=== PATIENT | female | born 1995 | race Two or more races ===

== ENCOUNTER 2018-11-10 00:52 | Emergency (ER) | payer OTHER ==
--- NOTE | 2018-11-10 00:59 | ER Report ---
History and Physical Time Seen By MD: 00:53 HPI/ROS CHIEF COMPLAINT: Alcohol intoxication, passed out HISTORY OF PRESENT ILLNESS: 23-year-old female brought in by EMS, yelling and thrashing about hysterically. She was unresponsive in the bathroom at a local bar. She was brought in by EMS, became quite agitated and hysterical. Shortly after arrival. She was rolling about in the bed nearly falling off the gurney onto the floor. Patient's sister who is present in sober states she is concerned that the patient may have been slipped date rape drug. Shortly after arrival, patient began vomiting. REVIEW OF SYSTEMS: Respiratory: No cough, no dyspnea. Cardiovascular: No chest pain, no palpitations. Gastrointestinal: As above Musculoskeletal: No back pain. Allergies: Coded Allergies: No Known Drug Allergies (Unverified , 11/10/18) Constitutional Vital Sign - Last 24 Hours 11/10/18 11/10/18 11/10/18 11/10/18 00:57 01:22 01:30 01:52 Temp 97.5 Pulse 87 ??? 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 TMs normal, oropharynx without dental trauma, heavy odor of emesis and alcohol Respiratory: Chest is non tender, lungs are clear to auscultation. Cardiac: regular rate and rhythm Gastrointestinal: Abdomen is soft and non tender, no masses, bowel sounds normal. Musculoskeletal: Neck: Neck is supple and non tender. Extremities have full range of motion and are non tender. Skin: No rashes or lesions. DIFFERENTIAL DIAGNOSIS: After history and physical exam differential diagnosis was considered for alcohol intoxication, polysubstance abuse, anxiety, Medical Decision Making Data Points Laboratory Hematology Test 11/10/18 01:24 Serum Alcohol 234 mg/dl Chemistry Test 11/10/18 01:24 Serum Alcohol 234 mg/dl Toxicology Test 11/10/18 01:24 Serum Alcohol 234 mg/dl ED Course/Re-evaluation Clinical Indication for ER IV: Hydration, IV Access ED Course Patient was admitted to an examination room. H&P was done. The differential diagnoses was considered. Patient with acute agitation and anxiety. She's been consuming alcohol tonight. She was found passed out at a bar and then aroused, she became quite hysterical. Patient was medicated with Zyprexa 5 mg IM for her own safety. She kept trying to fall or jump out of the bed in the emergency department. She subsequently developed vomiting of food and liquid material. A peripheral IV was established. She was medicated with Zofran 8 mg IV and 1 L of normal saline. Blood alcohol was ordered which returned at 237. Patient was monitored for several hours. She came to the bathroom and urinated. Her gait was steady. She was discharged home in the care of her sister. Her sister's concern that she may have been slipped the date rape drug Rohypnol. I explained that urine drug screen would not provide any information regarding that tonight. Decision to Disposition Date: Nov 10, 2018 Decision to Disposition Time: 01:03 Depart Departure Latest Vital Signs Vital Signs Date Time Temp Pulse Resp B/P (MAP) Pulse Ox O2 Delivery O2 Flow Rate FiO2 11/10/18 04:30 100/31 (54) 11/10/18 03:35 58 95 Room Air 11/10/18 00:57 97.5 18 Impression: Primary Impression: Alcohol intoxication Additional Impression: Anxiety attack Condition: Improved Disposition: HOME OR SELF-CARE Patient Instructions: Alcohol Intoxication (ED) Additional Instructions: Avoid drinking alcohol to excess Problem Qualifiers Primary Impression: Alcohol intoxication Complication of substance-induced condition: uncomplicated Qualified Codes: F10.920 - Alcohol use, unspecified with intoxication, uncomplicated THELMA DAVILA DO Nov 10, 2018 00:59
[2018-11-10] MEDS ORDERED: NS(*) 0.9% 1000 ML BAG 1,000 ML IV ONE (01:00)
[2018-11-10] MEDS ORDERED: ONDANSETRON 4 MG/2 ML VIAL IVP ONE (01:00)
[2018-11-10] MEDS ORDERED: OLANZapine 10 MG VIAL IM ONLY ONE (01:10)
[2018-11-10] MEDS ORDERED: WATER STERILE 10 ML VIAL IM ONLY ONE (01:10)
[2018-11-10 04:30] VITALS: BP 100/31
== END 2018-11-10 05:30 | disposition home or self-care (01) ==
LOC: ER 01:26
DX: F10.920 Alcohol use, unspecified with intoxication, uncomplicated (principal); Y90.7 Blood alcohol level of 200-239 mg/100 ml; F41.9 Anxiety disorder, unspecified
CPT/HCPCS: 80320; 96372; 96374; 99283; A4216; J2405; J3490; J7030